=== PATIENT | female | born 1975 | race African-American/Black ===

== ENCOUNTER 2021-01-27 14:59 | Outpatient (CLI) | payer BC | END 2021-01-27 15:00 | disposition home or self-care (01) | LOC: CSHCT 14:59 | PROVIDERS: ATTEND Physician Assistant Medical | DX: K86.9 Disease of pancreas, unspecified (principal); D18.03 Hemangioma of intra-abdominal structures; T82.515A Breakdown (mechanical) of umbrella device, initial encounter | CPT/HCPCS: 74170 ==

== ENCOUNTER 2021-02-13 08:16 | Outpatient (CLI) | payer BC | END 2021-02-13 08:17 | disposition home or self-care (01) | LOC: CSHULT 08:16 | PROVIDERS: ATTEND Physician Assistant Medical | DX: K58.0 Irritable bowel syndrome with diarrhea (principal); R10.11 Right upper quadrant pain; D18.03 Hemangioma of intra-abdominal structures | CPT/HCPCS: 76705 ==

== ENCOUNTER 2021-03-21 14:13 | Outpatient (CLI) | payer BC | END 2021-03-21 14:14 | disposition home or self-care (01) | LOC: CSHWCC 14:13 | PROVIDERS: ATTEND Nurse Practitioner Family | DX: S81.801D Unspecified open wound, right lower leg, subsequent encounter (principal); D18.03 Hemangioma of intra-abdominal structures; D25.9 Leiomyoma of uterus, unspecified; D68.59 Other primary thrombophilia; E11.9 Type 2 diabetes mellitus without complications; E46 Unspecified protein-calorie malnutrition; E78.5 Hyperlipidemia, unspecified; F41.9 Anxiety disorder, unspecified; G47.33 Obstructive sleep apnea (adult) (pediatric); G63 Polyneuropathy in diseases classified elsewhere; I10 Essential (primary) hypertension; K58.0 Irritable bowel syndrome with diarrhea; L76.32 Postprocedural hematoma of skin and subcutaneous tissue following other procedure; M32.10 Systemic lupus erythematosus, organ or system involvement unspecified; M32.9 Systemic lupus erythematosus, unspecified; M35.00 Sjogren syndrome, unspecified; M79.7 Fibromyalgia; R20.0 Anesthesia of skin; R26.81 Unsteadiness on feet; R53.82 Chronic fatigue, unspecified; R60.9 Edema, unspecified; Z91.81 History of falling | CPT/HCPCS: 99203; G0463 ==

== ENCOUNTER 2021-03-23 12:08 | Outpatient (CLI) | payer BC | END 2021-03-23 12:09 | disposition home or self-care (01) | LOC: CSHWCC 12:08 | PROVIDERS: ATTEND Nurse Practitioner Family | DX: S81.801D Unspecified open wound, right lower leg, subsequent encounter (principal); R60.0 Localized edema; D18.03 Hemangioma of intra-abdominal structures; D25.9 Leiomyoma of uterus, unspecified; D68.59 Other primary thrombophilia; E11.9 Type 2 diabetes mellitus without complications; E46 Unspecified protein-calorie malnutrition; E78.5 Hyperlipidemia, unspecified; F41.9 Anxiety disorder, unspecified; G47.33 Obstructive sleep apnea (adult) (pediatric); I10 Essential (primary) hypertension; K58.0 Irritable bowel syndrome with diarrhea; L76.32 Postprocedural hematoma of skin and subcutaneous tissue following other procedure; M32.10 Systemic lupus erythematosus, organ or system involvement unspecified; M32.9 Systemic lupus erythematosus, unspecified; M35.00 Sjogren syndrome, unspecified; M79.7 Fibromyalgia; R20.2 Paresthesia of skin; R26.81 Unsteadiness on feet; R53.82 Chronic fatigue, unspecified; Z91.81 History of falling | CPT/HCPCS: 99212; G0463 ==

== ENCOUNTER 2021-03-30 15:25 | Outpatient (CLI) | payer BC | END 2021-03-30 15:26 | disposition home or self-care (01) | LOC: CSHWCC 15:25 | PROVIDERS: ATTEND Nurse Practitioner Family | DX: E11.622 Type 2 diabetes mellitus with other skin ulcer (principal); D18.03 Hemangioma of intra-abdominal structures; D25.9 Leiomyoma of uterus, unspecified; D68.59 Other primary thrombophilia; E46 Unspecified protein-calorie malnutrition; E78.5 Hyperlipidemia, unspecified; F41.9 Anxiety disorder, unspecified; G47.33 Obstructive sleep apnea (adult) (pediatric); G63 Polyneuropathy in diseases classified elsewhere; I10 Essential (primary) hypertension; I87.2 Venous insufficiency (chronic) (peripheral); K58.0 Irritable bowel syndrome with diarrhea; L76.32 Postprocedural hematoma of skin and subcutaneous tissue following other procedure; M32.10 Systemic lupus erythematosus, organ or system involvement unspecified; M35.00 Sjogren syndrome, unspecified; M79.7 Fibromyalgia; R20.2 Paresthesia of skin; R26.81 Unsteadiness on feet; R53.82 Chronic fatigue, unspecified; R60.0 Localized edema; Z91.81 History of falling | CPT/HCPCS: 29581; 97605 ==

== ENCOUNTER 2021-04-03 09:45 | Outpatient (CLI) | payer BC | END 2021-04-03 09:46 | disposition home or self-care (01) | LOC: CSHWCC 09:45 | PROVIDERS: ATTEND Nurse Practitioner Family | DX: I87.2 Venous insufficiency (chronic) (peripheral) (principal); L76.32 Postprocedural hematoma of skin and subcutaneous tissue following other procedure; L97.212 Non-pressure chronic ulcer of right calf with fat layer exposed; D18.03 Hemangioma of intra-abdominal structures; D25.9 Leiomyoma of uterus, unspecified; D68.59 Other primary thrombophilia; E11.9 Type 2 diabetes mellitus without complications; E46 Unspecified protein-calorie malnutrition; E78.5 Hyperlipidemia, unspecified; F41.9 Anxiety disorder, unspecified; G47.33 Obstructive sleep apnea (adult) (pediatric); G63 Polyneuropathy in diseases classified elsewhere; K58.0 Irritable bowel syndrome with diarrhea; I10 Essential (primary) hypertension; M32.10 Systemic lupus erythematosus, organ or system involvement unspecified; M32.9 Systemic lupus erythematosus, unspecified; M35.00 Sjogren syndrome, unspecified; M79.7 Fibromyalgia; R20.2 Paresthesia of skin; R26.81 Unsteadiness on feet; R53.82 Chronic fatigue, unspecified; R60.0 Localized edema; Z91.81 History of falling | CPT/HCPCS: 29581; 97605 ==

== ENCOUNTER 2021-04-06 08:22 | Outpatient (CLI) | payer BC | END 2021-04-06 08:23 | disposition home or self-care (01) | LOC: CSHWCC 08:22 | PROVIDERS: ATTEND Nurse Practitioner Family | DX: I87.2 Venous insufficiency (chronic) (peripheral) (principal); L97.212 Non-pressure chronic ulcer of right calf with fat layer exposed; D18.03 Hemangioma of intra-abdominal structures; D25.9 Leiomyoma of uterus, unspecified; D68.59 Other primary thrombophilia; E11.9 Type 2 diabetes mellitus without complications; E46 Unspecified protein-calorie malnutrition; E78.5 Hyperlipidemia, unspecified; F41.9 Anxiety disorder, unspecified; G47.33 Obstructive sleep apnea (adult) (pediatric); G63 Polyneuropathy in diseases classified elsewhere; I10 Essential (primary) hypertension; K58.0 Irritable bowel syndrome with diarrhea; L76.32 Postprocedural hematoma of skin and subcutaneous tissue following other procedure; M32.10 Systemic lupus erythematosus, organ or system involvement unspecified; M32.9 Systemic lupus erythematosus, unspecified; M35.00 Sjogren syndrome, unspecified; M79.7 Fibromyalgia; R20.2 Paresthesia of skin; R26.81 Unsteadiness on feet; R53.82 Chronic fatigue, unspecified; R60.0 Localized edema; Z91.81 History of falling ==

== ENCOUNTER 2021-04-10 11:48 | Outpatient (CLI) | payer BC | END 2021-04-10 11:49 | disposition home or self-care (01) | LOC: CSHWCC 11:48 | PROVIDERS: ATTEND Nurse Practitioner Family | DX: I87.2 Venous insufficiency (chronic) (peripheral) (principal); E11.622 Type 2 diabetes mellitus with other skin ulcer; L97.212 Non-pressure chronic ulcer of right calf with fat layer exposed; L76.32 Postprocedural hematoma of skin and subcutaneous tissue following other procedure; E11.42 Type 2 diabetes mellitus with diabetic polyneuropathy; R60.0 Localized edema; D18.03 Hemangioma of intra-abdominal structures; D25.9 Leiomyoma of uterus, unspecified; E46 Unspecified protein-calorie malnutrition; E78.5 Hyperlipidemia, unspecified; F41.9 Anxiety disorder, unspecified; G47.33 Obstructive sleep apnea (adult) (pediatric); I10 Essential (primary) hypertension; D68.59 Other primary thrombophilia; K58.0 Irritable bowel syndrome with diarrhea; M32.10 Systemic lupus erythematosus, organ or system involvement unspecified; M32.9 Systemic lupus erythematosus, unspecified; M35.00 Sjogren syndrome, unspecified; M79.7 Fibromyalgia; R20.2 Paresthesia of skin; R26.81 Unsteadiness on feet; R53.82 Chronic fatigue, unspecified; Z91.81 History of falling ==

== ENCOUNTER 2021-04-13 12:43 | Outpatient (CLI) | payer BC | END 2021-04-13 12:44 | disposition home or self-care (01) | LOC: CSHWCC 12:43 | PROVIDERS: ATTEND Nurse Practitioner Family | DX: I87.2 Venous insufficiency (chronic) (peripheral) (principal); E11.622 Type 2 diabetes mellitus with other skin ulcer; L97.212 Non-pressure chronic ulcer of right calf with fat layer exposed; E11.42 Type 2 diabetes mellitus with diabetic polyneuropathy; D18.03 Hemangioma of intra-abdominal structures; D25.9 Leiomyoma of uterus, unspecified; D68.59 Other primary thrombophilia; E46 Unspecified protein-calorie malnutrition; E78.5 Hyperlipidemia, unspecified; F41.9 Anxiety disorder, unspecified; G47.33 Obstructive sleep apnea (adult) (pediatric); L76.32 Postprocedural hematoma of skin and subcutaneous tissue following other procedure; K58.0 Irritable bowel syndrome with diarrhea; M32.9 Systemic lupus erythematosus, unspecified; M35.00 Sjogren syndrome, unspecified; M32.10 Systemic lupus erythematosus, organ or system involvement unspecified; M79.7 Fibromyalgia; I10 Essential (primary) hypertension; R20.2 Paresthesia of skin; R26.81 Unsteadiness on feet; R53.82 Chronic fatigue, unspecified; R60.0 Localized edema; Z91.81 History of falling ==

== ENCOUNTER 2021-04-17 10:13 | Outpatient (CLI) | payer BC | END 2021-04-17 10:14 | disposition home or self-care (01) | LOC: CSHWCC 10:13 | PROVIDERS: ATTEND Nurse Practitioner Family | DX: I87.2 Venous insufficiency (chronic) (peripheral) (principal); L97.212 Non-pressure chronic ulcer of right calf with fat layer exposed; D18.03 Hemangioma of intra-abdominal structures; D25.9 Leiomyoma of uterus, unspecified; D68.59 Other primary thrombophilia; E11.9 Type 2 diabetes mellitus without complications; E46 Unspecified protein-calorie malnutrition; E78.5 Hyperlipidemia, unspecified; F41.9 Anxiety disorder, unspecified; G47.33 Obstructive sleep apnea (adult) (pediatric); G63 Polyneuropathy in diseases classified elsewhere; I10 Essential (primary) hypertension; K58.0 Irritable bowel syndrome with diarrhea; L76.32 Postprocedural hematoma of skin and subcutaneous tissue following other procedure; M35.00 Sjogren syndrome, unspecified; M32.10 Systemic lupus erythematosus, organ or system involvement unspecified; M79.7 Fibromyalgia; R20.2 Paresthesia of skin; R26.81 Unsteadiness on feet; R53.82 Chronic fatigue, unspecified; R60.0 Localized edema; Z91.81 History of falling ==

== ENCOUNTER 2021-04-20 08:28 | Outpatient (CLI) | payer BC | END 2021-04-20 08:29 | disposition home or self-care (01) | LOC: CSHWCC 08:28 | PROVIDERS: ATTEND Nurse Practitioner Family | DX: I87.2 Venous insufficiency (chronic) (peripheral) (principal); D18.03 Hemangioma of intra-abdominal structures; D25.9 Leiomyoma of uterus, unspecified; R60.0 Localized edema; D68.59 Other primary thrombophilia; E46 Unspecified protein-calorie malnutrition; E78.5 Hyperlipidemia, unspecified; F41.9 Anxiety disorder, unspecified; G47.33 Obstructive sleep apnea (adult) (pediatric); G63 Polyneuropathy in diseases classified elsewhere; K58.0 Irritable bowel syndrome with diarrhea; L76.32 Postprocedural hematoma of skin and subcutaneous tissue following other procedure; L97.212 Non-pressure chronic ulcer of right calf with fat layer exposed; M32.10 Systemic lupus erythematosus, organ or system involvement unspecified; M32.9 Systemic lupus erythematosus, unspecified; M35.00 Sjogren syndrome, unspecified; M79.7 Fibromyalgia; R20.2 Paresthesia of skin; E11.9 Type 2 diabetes mellitus without complications; R26.81 Unsteadiness on feet; R53.82 Chronic fatigue, unspecified; I10 Essential (primary) hypertension; Z91.81 History of falling | CPT/HCPCS: 17250; 99213; G0463 ==

== ENCOUNTER 2021-04-27 08:39 | Outpatient (CLI) | payer BC | END 2021-04-27 08:40 | disposition home or self-care (01) | LOC: CSHWCC 08:39 | PROVIDERS: ATTEND Nurse Practitioner Family | DX: L97.212 Non-pressure chronic ulcer of right calf with fat layer exposed (principal); R60.0 Localized edema ==

== ENCOUNTER 2021-05-11 09:11 | Outpatient (CLI) | payer BC | END 2021-05-11 09:12 | disposition home or self-care (01) | LOC: CSHWCC 09:11 | PROVIDERS: ATTEND Nurse Practitioner Family | DX: L97.212 Non-pressure chronic ulcer of right calf with fat layer exposed (principal); R60.0 Localized edema | CPT/HCPCS: 99213; G0463 ==